=== PATIENT | female | born 1965 | race Caucasian/White ===

== ENCOUNTER → 2018-10-14 13:15 | Outpatient (CLI) | payer BC ==
[2012-03-09 12:13] VITALS: BMI 27.5
== END | disposition home or self-care (01) ==
LOC: D.RAD 13:15
PROVIDERS: ATTEND Nurse Practitioner Family
DX: S43.431A Superior glenoid labrum lesion of right shoulder, initial encounter (principal)

== ENCOUNTER 2018-11-09 06:10 | Day surgery (SDC) | payer BC ==
[2018-11-08 10:11] LABS: HEMATOCRIT 35.7 % (36.0-48.0); HEMOGLOBIN 12.7 g/dL (12-16); MCH 31.1 pg (26.0-34.0); MCHC 35.6 g/dL (31.0-37.0); MCV 87.3 fL (80.0-100.0); MEAN PLATELET VOLUME 9.6 fL (7.4-10.4); RBC 4.09 10x6/uL (4.00-5.40); RDW 14.4 % (11.5-14.5); WBC 6.2 10x3/uL (4.8-10.8)
[~2018-11-09] VITALS: Ht 165.1 cm; Wt 72.6 kg
[~2018-11-09 06:10] MED LIST: BUPROPION XL150 MG PO; BYSTOLIC10 MG PO; CALCIUM 500 +1 EAC3 PO; DEXILANT60 MG PO; HYDROCODON-ACE1 EAC7 PO; MOBIC7.5 MG PO; NEURONTIN 300300 MG PO; PAXIL40 MG PO; TOPAMAX50 MG PO; XANAX0.5 MG PO; ZANAFLEX4 MG PO
[2018-11-09 06:53] VITALS: BP 119/69; Ht 165.1 cm; Wt 72.6 kg
[2018-11-09] MEDS ORDERED: PERCOCET 5-3251 TAB PO (10:30)
[2018-11-09] MEDS ORDERED: VISTARIL50 MG PO (10:31)
--- NOTE | 2018-11-09 12:35 | OP ---
PATIENT NAME: LISSETT DIOP MEDICAL RECORD: [id number] :61 [facility] DATE: SURGEON: BRODERICK SOLORIO DO DATE OF OPERATION: 11/09/2018 PROCEDURE PERFORMED: Right shoulder arthroscopy with subacromial decompression, distal clavicle excision, labral debridement, and bicep tenodesis. PREOPERATIVE DIAGNOSES: Right shoulder superior labrum anterior and posterior tear, subacromial impingement, and acromioclavicular joint arthritis. POSTOPERATIVE DIAGNOSES: Right shoulder superior labrum anterior and posterior tear, subacromial impingement, and acromioclavicular joint arthritis. INDICATIONS: Ms. Diop is a 53-year-old female who has had right shoulder pain for quite some time. She has tried injections and all manners of nonoperative treatment including home therapy to no avail. She had an MRI, which demonstrated a SLAP tear and some AC joint arthritis. She was informed of the risks including infection, bleeding, damage to nerves and vessels, need for further surgery, continued pain, and loss of motion of the shoulder. She signed the consent. SURGEON: Broderick Solorio DO DESCRIPTION OF PROCEDURE: The patient was given a block by anesthesia in the preoperative area. He was taken to the operative suite, laid in the left lateral decubitus position with the right shoulder up. She was given 900 mg of clindamycin preoperatively. The right shoulder was then prepped and draped in sterile fashion. Timeout was performed. Everyone was in agreement with the correct side, site, patient, and procedure. Then, an 18-gauge spinal needle was entered into the shoulder joint and the joint was insufflated with 60 mL of normal saline. The 11-blade scalpel was then used to establish posterior portal and trocar was entered into the shoulder joint. Once it was entered in the shoulder joint, the camera was entered. A large SLAP tear was seen on the labrum. The anterior portal was then established with an 18-gauge spinal needle 11-blade scalpel. Burner was brought in through the anterior portal and a bicep tenotomy was done at that point as well as a labral debridement. The rotator cuff was checked. The supraspinatus was intact as well as the subscapularis and the infraspinatus. The inferior gutter of the shoulder joint looked good. No loose body seen in it. The scope was then switched to the subacromial space. Lateral portal was then established using an 18-gauge spinal needle and 11-blade scalpel and a subacromial decompression was done at that time and the AC joint was opened up. The distal lateral acromion was removed, removing large spur as well as the distal end of the clavicle opening up the AC joint to approximately 7 mm. Any bursa was removed at that time also with a shaver from the lateral portal. The water was then turned off. Suction was turned on. Excess fluid was taken out of the shoulder as much as possible. An anterior incision was made over the humerus. Careful dissection was made down to the long head of the bicep tendon. This was brought out through the incision, whipstitched, and then a single button was placed on the stitch. A unicortical hole was placed in the humerus and the button was placed in that and the bicep tendon was cinched down to it, tied and then a free needle was used to go back through the bicep tendon and this was tied down as well. The excess tendon and suture was cut at that time. The site was irrigated with normal saline and the site was closed with 2-0 Vicryl in an inverted interrupted fashion, 4-0 Monocryl ran the skin, and OPERATIVE REPORT [id number] LISSETT DIOP each of the scope portals were closed with 4-0 Monocryl in inverted interrupted fashion. Dermabond glue placed over all the incisions. Telfa and Tegaderm were then placed over that. She was awakened and taken to recovery in stable condition. BLOOD LOSS: Minimal. COMPLICATIONS: None. TRANSINT:[id number] Voice Confirmation ID: [id number] DOCUMENT ID: [id number] BRODERICK SOLORIO DO at 1235 CC: [id number] DICTATION DATE: 11/09/18 1035 IT INFRASTRUCTURE ENGINEER: 11/09/18 [id number] [place] [address]
--- NOTE | 2018-11-09 13:01 | NUR ---
1230 IV REMOVED INSTRUCTIONS AND RX GIVEN TO . 1240 PT DRESSED AND SLING ON. GOOD CIRCULATION MILD PAIN TO RT ELBOW, 07/11
== END 2018-11-09 13:03 | disposition home or self-care (01) ==
LOC: D.OPS 06:10
PROVIDERS: Anesthesiology; ATTEND Orthopaedic Surgery
DX: S43.431A Superior glenoid labrum lesion of right shoulder, initial encounter (principal); M75.41 Impingement syndrome of right shoulder; M19.011 Primary osteoarthritis, right shoulder; X58.XXXA Exposure to other specified factors, initial encounter; Z01.812 Encounter for preprocedural laboratory examination

== ENCOUNTER → 2019-08-04 09:12 | Outpatient (CLI) | payer BC ==
[2018-11-09 06:53] VITALS: BMI 26.6
[~2019-08-04 09:12] MED LIST changes: +PERCOCET 5-3251 TAB PO; +VISTARIL50 MG PO
== END | disposition home or self-care (01) ==
LOC: D.MRI 09:12
PROVIDERS: ATTEND Clinical Nurse Specialist Family Health
DX: M25.522 Pain in left elbow (principal)